=== PATIENT | male | born 1990 | race Asian ===

== ENCOUNTER 2019-08-13 21:45 | Emergency (ER) | payer OTHER ==
[~2019-08-13] VITALS: Ht 167.6 cm; Wt 69.9 kg
[2019-08-13 22:44] VITALS: Ht 167.6 cm; Wt 69.9 kg
[2019-08-13 23:14] LABS: BASOPHIL % 0.1 % (0-2); PLATELET COUNT 218 x10^3mcL (130-400); RED CELL DISTRIBUTION WIDTH 12.6 % (11.5-14.5)
[2019-08-13 23:47] LABS: CHLORIDE SERUM 106 mmol/L (98-107); POTASSIUM SERUM 4.3 mmol/L (3.5-5.1); SODIUM SERUM 141 mmol/L (136-145)
[2019-08-13 23:48] LABS: CARBON DIOXIDE 25.2 mmol/L (21-32); GLUCOSE SERUM 116 mg/dL (74-106)
[2019-08-13 23:49] LABS: ALBUMIN 4.4 g/dL (3.4-5.0); CALCIUM 9.2 mg/dL (8.5-10.1); CREATININE SERUM 1.2 mg/dL (0.7-1.3); GFR1 > 60 mL/min; TOTAL PROTEIN, SERUM 7.5 g/dL (6.4-8.2)
[2019-08-13 23:50] LABS: ALKALINE PHOSPHATASE 81 U/L (46-116); ALT/SGPT 45 U/L (16-63); AMYLASE 67 U/L (25-115); AST/SGOT 24 U/L (15-37); BILIRUBIN TOTAL 0.2 mg/dL (0.20-1.00); LIPASE 70 IU/L (73-393)
[2019-08-14 00:58] LABS: UA SPECIFIC GRAVITY >=1.030 (1.005-1.035); microscopic required? YES; urine erythrocyte 3+ (NEGATIVE)
[2019-08-14 02:05] VITALS: BP 105/60
== END 2019-08-14 02:06 | disposition home or self-care (01) ==
LOC: ED 21:45
PROVIDERS: Emergency Medicine
DX: R10.31 Right lower quadrant pain (principal); R31.29 Other microscopic hematuria; F17.210 Nicotine dependence, cigarettes, uncomplicated
CPT/HCPCS: 36415; Q0092